=== PATIENT | male | born 1955 | race Two or more races ===

== ENCOUNTER 2021-02-14 04:48 | Inpatient (IN) | payer OTHER ==
[~2021-02-14] VITALS: Ht 165.1 cm; Wt 130.6 kg
[2021-02-14] MEDS ORDERED: HEPARIN 5000 UNITS/ML VIAL IV ONE (05:00)
[2021-02-14] MEDS ORDERED: DEXAMETHASONE 10 MG/ML VIAL IV ONE (05:00)
[2021-02-14] MEDS ORDERED: HEPARIN 25,000 UNITS PREMIX 250 ML IV ONE (05:00)
[2021-02-14 05:19] LABS: HEMATOCRIT. 30.4 % (42.0-52.0); HEMOGLOBIN. 9.8 g/dL (14.0-18.0); MEAN CORPUSCULAR HEMOGLOBIN 27.1 pg (28.0-32.0); MEAN CORPUSCULAR VOLUME 84.5 fL (80.0-94.0); MEAN PLATELET VOLUME 9.4 fl (7.4-10.4); PLATELET 245 x1000/uL (130-400); RED CELL DISTRIBUTION WIDTH 13.9 % (11.6-14.6)
[2021-02-14 05:25] LABS: CHLORIDE 101 mEq/L (98-107)
[2021-02-14 05:29] LABS: INR 1.1; PARTIAL THROMBOPLASTIN TIME 35.9 sec (23.4-31.0); PROTHROMBIN TIME 11.7 sec (9.6-11.0)
[2021-02-14] MEDS ORDERED: CALCIUM CHLORIDE 1GM/10ML SYR IV NR (05:45)
[2021-02-14] MEDS ORDERED: ALBUTEROL (0.083%) 2.5MG/3ML NEB HHN NR (05:45)
[2021-02-14] MEDS ORDERED: SODIUM BICARBONATE 8.4% 1 MEQ/ML 50ML SYR IV NR (05:45)
[2021-02-14] MEDS ORDERED: INSULIN REGULAR (HUMULIN R) 300UNITS/3ML VIAL IV NR (05:45)
[2021-02-14] MEDS ORDERED: DEXTROSE 50% WATER 50ML SYRINGE IV ONE (05:45)
[2021-02-14] MEDS ORDERED: HEPARIN 5000 UNITS/ML VIAL IV NR (05:45)
[2021-02-14 05:53] LABS: BG BASE EXCESS -11.1 mmol/L (-2.0-2.0); BG CARBOXYHEMOGLOBIN 0.3 % (0.5-1.5); BG DEOXYHEMOGLOBIN 18.6 % (0.0-5.0); BG FRACTION INSPIRED OXYGEN 100; BG HCO3 ACT 15.1 mmol/L (22.0-26.0); BG METHEMOGLOBIN 0.4 % (0.0-1.5); BG OXYGEN SATURATION 81.3 % (92.0-98.5); BG OXYHEMOGLOBIN 80.7 % (94.0-97.0); BG PCO2 35.2 mmHg (35.0-45.0); BG PH 7.251 (7.350-7.450); BG PO2 50.1 mmHg (75.0-100.0); BG SAMPLE SITE RIGHT RADIAL; BG TOTAL HEMOGLOBIN 10.3 g/dL (12.0-18.0); BG TOTAL RESPIRATORY RATE 36 b/min; BG VENT MODE MASK - BIPAP
[2021-02-14] MEDS ORDERED: HEPARIN 25,000 UNITS PREMIX 250 ML IV SCH (06:00)
[2021-02-14] MEDS ORDERED: FUROSEMIDE 100MG/10ML VIAL IV NR (06:00)
[2021-02-14 06:18] LABS: PLATELET ESTIMATE NORMAL
[2021-02-14] MEDS ORDERED: PIPERACILLIN/TAZ 3.375G PREMIX 50 ML IV ONE (07:00)
[2021-02-14] MEDS ORDERED: VANCOMYCIN 1 G PREMIX 200 ML IV ONE (07:00)
[2021-02-14] MEDS ORDERED: IOHEXOL-350 100 ML BOTTLE ONE (08:05)
[2021-02-14 08:29] LABS: COLOR URINE YELLOW (YELLOW); KETONES URINE NEGATIVE (NEGATIVE); LEUKOCYTE ESTERASE URINE NEGATIVE (NEGATIVE); NITRITE URINE NEGATIVE (NEGATIVE); OCCULT BLOOD URINE NEGATIVE (NEGATIVE); PROTEIN URINE NEGATIVE (NEGATIVE); SPECIFIC GRAVITY URINE 1.013 (1.005-1.030); UROBILINOGEN URINE 0.2 E.U./dL (0.2-1.0)
[2021-02-14 08:51] LABS: CLARITY URINE CLEAR (CLEAR)
[2021-02-14] MEDS ORDERED: DIPHENHYDRAMINE 50MG/ML VIAL IV PRN (09:15)
[2021-02-14] MEDS ORDERED: CLONIDINE 0.1MG TABLET PO PRN (09:15)
[2021-02-14] MEDS ORDERED: ACETAMINOPHEN 325MG TABLET PO PRN (09:15)
[2021-02-14] MEDS ORDERED: ONDANSETRON HCL 4MG/2ML INJ IV PRN (09:15)
[2021-02-14] MEDS ORDERED: CEFTRIAXONE 1 G PREMIX 50 ML IV SCH (10:00)
[2021-02-14] MEDS ORDERED: DEXTROSE 50% WATER 50ML SYRINGE IV PRN (11:00)
[2021-02-14] MEDS: HYDRALAZINE 20MG/ML VIAL IV PRN ×2 (11:07→17:24)
[2021-02-14 11:12] LABS: BG BASE EXCESS -9.2 mmol/L (-2.0-2.0); BG CARBOXYHEMOGLOBIN 0.2 % (0.5-1.5); BG DEOXYHEMOGLOBIN 1.3 % (0.0-5.0); BG HCO3 ACT 16.1 mmol/L (22.0-26.0); BG METHEMOGLOBIN 0.4 % (0.0-1.5); BG OXYGEN SATURATION 98.7 % (92.0-98.5); BG OXYHEMOGLOBIN 98.1 % (94.0-97.0); BG PCO2 32.5 mmHg (35.0-45.0); BG PH 7.312 (7.350-7.450); BG PO2 168.2 mmHg (75.0-100.0); BG SAMPLE SITE RIGHT BRACHIAL; BG TOTAL HEMOGLOBIN 10.2 g/dL (12.0-18.0); BG VENT MODE MASK - BIPAP
[2021-02-14] MEDS ORDERED: HEPARIN BOLUS PRN aPTT <30 IV (12:00)
[2021-02-14] MEDS ORDERED: HEPARIN BOLUS PRN aPTT 30-44 IV (12:00)
[2021-02-14] MEDS: BLOOD SUGAR DIAGNOSTIC STRIP TEST SCH ×3 (12:53→21:02)
[2021-02-14] MEDS: HYDROCORTISONE SOD SUCCINATE 100 MG/2 ML VIAL IV SCH ×2 (13:00→19:14)
[2021-02-14] MEDS: AZITHROMYCIN 500 MG in DEXT 5% WATER 250 ML IV SCH (13:00)
[2021-02-14] MEDS: INSULIN LISPRO 100 UNITS/ML SUBCUT SCH ×3 (13:02→21:07)
[2021-02-14] MEDS: CEFEPIME 1,000 MG in DEXTROSE 5% WATER 50 ML IV SCH (14:57)
[2021-02-14] MEDS: MYCOPHENOLATE MOFETIL 500MG TABLET PO SCH (21:02)
[2021-02-14] MEDS: HEPARIN 5000 UNITS/ML VIAL SUBCUT SCH (23:11)
[2021-02-15] VITALS (8 sets, daily range): BP systolic 136–169; BP diastolic 83–95
[2021-02-15] LABS: CHLORIDE 101 mEq/L (98-107)
[2021-02-15] MEDS: HYDROCORTISONE SOD SUCCINATE 100 MG/2 ML VIAL IV SCH ×4 (01:36→19:13)
[2021-02-15 05:08] LABS: HEMATOCRIT. 30.9 % (42.0-52.0); HEMOGLOBIN. 9.8 g/dL (14.0-18.0); MEAN CORPUSCULAR HEMOGLOBIN 26.6 pg (28.0-32.0); MEAN CORPUSCULAR VOLUME 84.2 fL (80.0-94.0); MEAN PLATELET VOLUME 9.6 fl (7.4-10.4); PLATELET 264 x1000/uL (130-400); RED BLOOD CELL COUNT 3.67 mill/uL (4.7-6.1); RED CELL DISTRIBUTION WIDTH 13.8 % (11.6-14.6)
[2021-02-15 05:17] LABS: CHLORIDE 101 mEq/L (98-107)
[2021-02-15 05:28] LABS: LDL CHOLESTEROL 31 mg/dL (5-100)
[2021-02-15 05:29] LABS: HDL CHOLESTEROL 41 mg/dL (40-59)
[2021-02-15] MEDS: BLOOD SUGAR DIAGNOSTIC STRIP TEST SCH ×4 (07:12→21:05)
[2021-02-15] MEDS ORDERED: LIDOCAINE HCL 1% 20ML VIAL (Pyxis) INJ ONE (07:18)
[2021-02-15] MEDS: INSULIN LISPRO 100 UNITS/ML SUBCUT SCH ×4 (08:17→21:22)
[2021-02-15 09:04] LABS: PLATELET ESTIMATE NORMAL
[2021-02-15] MEDS: MYCOPHENOLATE MOFETIL 500MG TABLET PO SCH ×2 (09:32→21:22)
[2021-02-15] MEDS: AZITHROMYCIN 500 MG in DEXT 5% WATER 250 ML IV SCH (09:33)
[2021-02-15] MEDS: HEPARIN 5000 UNITS/ML VIAL SUBCUT SCH ×2 (09:52→21:22)
[2021-02-15] MEDS ORDERED: HYDROMORPHONE HCL/PF 2MG/ML CPJ IV PRN (10:15)
[2021-02-15] MEDS: SODIUM CHLORIDE 0.9% 1,000 ML IV SCH ×2 (10:56→21:38)
[2021-02-15] MEDS ORDERED: SODIUM POLYSTYRENE SULFONATE 15 G/60 ML BOT PO SCH (11:00)
[2021-02-15] MEDS: CEFEPIME 1,000 MG in DEXTROSE 5% WATER 50 ML IV SCH (13:41)
[2021-02-15] MEDS: IVERMECTIN 3 MG TABLET PO SCH (19:40)
[2021-02-16] VITALS (42 sets, daily range): BP systolic 132–171; BP diastolic 65–109
[2021-02-16] MEDS: HYDROCORTISONE SOD SUCCINATE 100 MG/2 ML VIAL IV SCH ×4 (00:12→19:11)
[2021-02-16] MEDS ORDERED: MULT-1146 MT (01:21)
[2021-02-16] MEDS ORDERED: TACR4TAB MT (01:21)
[2021-02-16] MEDS ORDERED: ATOR20TA65 MT (01:21)
[2021-02-16] MEDS ORDERED: CARV12.545 MT (01:21)
[2021-02-16] MEDS ORDERED: AMLO10TA80 MT (01:37)
[2021-02-16] MEDS ORDERED: MYCO250C MT (01:37)
[2021-02-16] MEDS ORDERED: ENTE0.5T11 MT (01:37)
[2021-02-16] MEDS ORDERED: ASPI-1497 PO (01:37)
[2021-02-16] MEDS ORDERED: PRED-276 MT (01:37)
[2021-02-16] MEDS ORDERED: LISI10TA26 MT (01:37)
[2021-02-16] MEDS ORDERED: TAMS-11 PO (01:37)
[2021-02-16] MEDS ORDERED: HYDR-4135 MT (01:37)
[2021-02-16] MEDS ORDERED: *PATIENT'S OWN MEDICATION STORAGE XX SCH (02:45)
[2021-02-16] MEDS: BLOOD SUGAR DIAGNOSTIC STRIP TEST SCH ×4 (06:09→20:49)
[2021-02-16] MEDS: INSULIN LISPRO 100 UNITS/ML SUBCUT SCH ×4 (06:17→21:14)
[2021-02-16 07:36] LABS: HEMATOCRIT. 27.2 % (42.0-52.0); HEMOGLOBIN. 8.8 g/dL (14.0-18.0); MEAN CORPUSCULAR HEMOGLOBIN 26.7 pg (28.0-32.0); MEAN PLATELET VOLUME 10.1 fl (7.4-10.4); PLATELET 295 x1000/uL (130-400); RED BLOOD CELL COUNT 3.28 mill/uL (4.7-6.1)
[2021-02-16] MEDS ORDERED: PROPOFOL 10MG/ML 100ML 100 ML IV PRN (08:00)
[2021-02-16] MEDS ORDERED: NALOXONE HCL 0.4MG/ML VIAL IV PRN (08:00)
[2021-02-16] MEDS ORDERED: MIDAZOLAM HCL 100 MG in SODIUM CHLORIDE 0.9% 80 ML IV PRN (08:00)
[2021-02-16] MEDS ORDERED: FENTANYL CITRATE/PF 2,500 MCG in SODIUM CHLORIDE 0.9% 200 ML IV PRN (08:00)
[2021-02-16] MEDS: CITRIC ACID/SODIUM CITRATE SOLN 30ML UDC PO SCH ×3 (10:16→16:27)
[2021-02-16] MEDS: HYDRALAZINE 20MG/ML VIAL IV PRN (10:16)
[2021-02-16] MEDS: HEPARIN 5000 UNITS/ML VIAL SUBCUT SCH ×2 (10:17→21:12)
[2021-02-16] MEDS: AZITHROMYCIN 500 MG in DEXT 5% WATER 250 ML IV SCH (10:42)
[2021-02-16] MEDS: MYCOPHENOLATE MOFETIL 500MG TABLET PO SCH ×2 (10:42→21:12)
[2021-02-16] MEDS: SODIUM CHLORIDE 0.9% 1,000 ML IV SCH (10:44)
[2021-02-16] MEDS: CEFEPIME 1,000 MG in DEXTROSE 5% WATER 50 ML IV SCH (13:55)
[2021-02-16] MEDS ORDERED: ALPRAZOLAM 0.25 MG TABLET PO PRN (16:00)
[2021-02-16] MEDS: LORAZEPAM 2MG/ML CPJ IV PRN (16:28)
[2021-02-16] MEDS ORDERED: AMLODIPINE 10MG TABLET PO NR (16:30)
[2021-02-16 16:59] LABS: PLATELET ESTIMATE NORMAL
[2021-02-16] MEDS: IVERMECTIN 3 MG TABLET PO SCH (19:09)
[2021-02-16] MEDS: CARVEDILOL 12.5MG TABLET PO SCH (21:15)
[2021-02-17] VITALS (24 sets, daily range): BP systolic 131–171; BP diastolic 58–95
[2021-02-17] MEDS: HYDROCORTISONE SOD SUCCINATE 100 MG/2 ML VIAL IV SCH ×4 (00:52→18:49)
[2021-02-17] MEDS: SODIUM CHLORIDE 0.9% 1,000 ML IV SCH ×2 (03:00→17:49)
[2021-02-17] MEDS: LORAZEPAM 2MG/ML CPJ IV PRN (03:08)
[2021-02-17] MEDS: HYDRALAZINE 20MG/ML VIAL IV PRN (03:08)
[2021-02-17 05:17] LABS: HEMATOCRIT. 26.9 % (42.0-52.0); HEMOGLOBIN. 8.8 g/dL (14.0-18.0); MEAN CORPUSCULAR HEMOGLOBIN 26.8 pg (28.0-32.0); MEAN CORPUSCULAR VOLUME 82.4 fL (80.0-94.0); MEAN PLATELET VOLUME 9.8 fl (7.4-10.4); PLATELET 323 x1000/uL (130-400); RED BLOOD CELL COUNT 3.27 mill/uL (4.7-6.1); RED CELL DISTRIBUTION WIDTH 14.1 % (11.6-14.6)
[2021-02-17] MEDS: BLOOD SUGAR DIAGNOSTIC STRIP TEST SCH ×4 (06:02→21:00)
[2021-02-17] MEDS: INSULIN LISPRO 100 UNITS/ML SUBCUT SCH ×4 (06:02→22:32)
[2021-02-17] MEDS: CITRIC ACID/SODIUM CITRATE SOLN 30ML UDC PO SCH ×3 (08:19→17:49)
[2021-02-17] MEDS: AMLODIPINE 10MG TABLET PO SCH (08:21)
[2021-02-17] MEDS: CARVEDILOL 12.5MG TABLET PO SCH (08:22)
[2021-02-17] MEDS ORDERED: DEXAMETHASONE 4MG/ML 1ML VIAL IV SCH (09:00)
[2021-02-17] MEDS: MYCOPHENOLATE MOFETIL 500MG TABLET PO SCH ×2 (10:19→21:00)
[2021-02-17] MEDS: HEPARIN 5000 UNITS/ML VIAL SUBCUT SCH ×2 (10:29→22:33)
[2021-02-17] MEDS: AZITHROMYCIN 500 MG in DEXT 5% WATER 250 ML IV SCH (12:06)
[2021-02-17] MEDS: CEFEPIME 1,000 MG in DEXTROSE 5% WATER 50 ML IV SCH (13:42)
[2021-02-17] MEDS ORDERED: GUAIFENESIN-DM 200MG-20MG/10ML UDC PO PRN (13:45)
[2021-02-17] MEDS ORDERED: BENZONATATE 100MG CAPSULE PO PRN (13:45)
[2021-02-17] MEDS ORDERED: LORAZEPAM 2MG/ML CPJ IV PRN (13:45)
[2021-02-17 15:42] LABS: PLATELET ESTIMATE NORMAL
[2021-02-17] MEDS: IVERMECTIN 3 MG TABLET PO SCH (19:00)
[2021-02-17] MEDS: METOPROLOL TARTRATE 50MG TABLET PO SCH (21:00)
[2021-02-18] VITALS (34 sets, daily range): BP systolic 68–147; BP diastolic 24–71
[2021-02-18] MEDS: HYDROCORTISONE SOD SUCCINATE 100 MG/2 ML VIAL IV SCH ×4 (01:08→20:48)
[2021-02-18 07:33] LABS: HEMATOCRIT. 27.8 % (42.0-52.0); HEMOGLOBIN. 8.7 g/dL (14.0-18.0); MEAN CORPUSCULAR HEMOGLOBIN 26.5 pg (28.0-32.0); MEAN CORPUSCULAR VOLUME 84.3 fL (80.0-94.0); MEAN PLATELET VOLUME 10.3 fl (7.4-10.4); PLATELET 294 x1000/uL (130-400); RED BLOOD CELL COUNT 3.29 mill/uL (4.7-6.1); RED CELL DISTRIBUTION WIDTH 14.3 % (11.6-14.6)
[2021-02-18] MEDS: BLOOD SUGAR DIAGNOSTIC STRIP TEST SCH ×4 (07:34→20:52)
[2021-02-18] MEDS ORDERED: METOPROLOL TARTRATE 5MG/5ML VIAL IV PRN (08:15)
[2021-02-18] MEDS: CITRIC ACID/SODIUM CITRATE SOLN 30ML UDC PO SCH ×2 (09:42→13:00)
[2021-02-18] MEDS: AMLODIPINE 10MG TABLET PO SCH (09:42)
[2021-02-18] MEDS: METOPROLOL TARTRATE 50MG TABLET PO SCH ×2 (09:42→20:41)
[2021-02-18] MEDS: MYCOPHENOLATE MOFETIL 500MG TABLET PO SCH ×2 (09:42→20:42)
[2021-02-18] MEDS ORDERED: VECURONIUM BROMIDE 10 MG/VIAL IV ONE (10:01)
[2021-02-18] MEDS ORDERED: SODIUM CHLORIDE 0.9% 10ML VIAL ONE (10:01)
[2021-02-18] MEDS: INSULIN LISPRO 100 UNITS/ML SUBCUT SCH ×4 (10:15→20:51)
[2021-02-18] MEDS ORDERED: METOPROLOL TARTRATE 5MG/5ML VIAL IV NR (11:00)
[2021-02-18] MEDS: HEPARIN 5000 UNITS/ML VIAL SUBCUT SCH ×2 (11:05→21:07)
[2021-02-18] MEDS: AZITHROMYCIN 500 MG in DEXT 5% WATER 250 ML IV SCH (12:18)
[2021-02-18] MEDS: FENTANYL CITRATE/PF 2,500 MCG in SODIUM CHLORIDE 0.9% 200 ML IV PRN ×5 (14:01→16:21)
[2021-02-18 14:15] LABS: BG BASE EXCESS -11.1 mmol/L (-2.0-2.0); BG CARBOXYHEMOGLOBIN 0.3 % (0.5-1.5); BG DEOXYHEMOGLOBIN 1.3 % (0.0-5.0); BG FRACTION INSPIRED OXYGEN 100; BG HCO3 ACT 15.7 mmol/L (22.0-26.0); BG METHEMOGLOBIN 0.1 % (0.0-1.5); BG OXYGEN SATURATION 98.7 % (92.0-98.5); BG OXYHEMOGLOBIN 98.3 % (94.0-97.0); BG PCO2 38.7 mmHg (35.0-45.0); BG PH 7.226 (7.350-7.450); BG PO2 219.7 mmHg (75.0-100.0); BG SAMPLE SITE RIGHT RADIAL; BG TOTAL HEMOGLOBIN 9.9 g/dL (12.0-18.0); BG VENT MODE VENT - AC
[2021-02-18 14:16] LABS: PLATELET ESTIMATE NORMAL
[2021-02-18] MEDS ORDERED: SODIUM BICARBONATE 8.4% 1 MEQ/ML 50ML SYR IV NR ×2 (14:30)
[2021-02-18] MEDS: CEFEPIME 1,000 MG in DEXTROSE 5% WATER 50 ML IV SCH (14:39)
[2021-02-18] MEDS: SODIUM CHLORIDE 0.9% 1,000 ML IV SCH (14:40)
[2021-02-18] MEDS ORDERED: LIDOCAINE HCL 1% 20ML VIAL (Pyxis) INJ ONE (14:52)
[2021-02-18] MEDS: MIDAZOLAM HCL 100 MG in SODIUM CHLORIDE 0.9% 80 ML IV PRN ×2 (15:24→16:22)
[2021-02-18] MEDS: PROPOFOL 10MG/ML 100ML 100 ML IV PRN (16:20)
[2021-02-18] MEDS: PHENYLEPHRINE 100 MG in DEXT 5% WATER 240 ML IV PRN (16:54)
[2021-02-18] MEDS: IVERMECTIN 3 MG TABLET PO SCH (20:49)
[2021-02-19] VITALS (95 sets, daily range): BP systolic 77–196; BP diastolic 34–110
[2021-02-19] MEDS: MIDAZOLAM HCL 100 MG in SODIUM CHLORIDE 0.9% 80 ML IV PRN ×2 (01:34→14:47)
[2021-02-19] MEDS ORDERED: VECURONIUM BROMIDE 10 MG/VIAL IV SCH (02:00)
[2021-02-19] MEDS: FENTANYL CITRATE/PF 2,500 MCG in SODIUM CHLORIDE 0.9% 200 ML IV PRN ×3 (02:11→17:46)
[2021-02-19 05:08] LABS: HEMATOCRIT. 29.4 % (42.0-52.0); HEMOGLOBIN. 9.3 g/dL (14.0-18.0); MEAN CORPUSCULAR HEMOGLOBIN 26.3 pg (28.0-32.0); MEAN CORPUSCULAR VOLUME 83.2 fL (80.0-94.0); MEAN PLATELET VOLUME 10.3 fl (7.4-10.4); PLATELET 358 x1000/uL (130-400); RED BLOOD CELL COUNT 3.53 mill/uL (4.7-6.1); RED CELL DISTRIBUTION WIDTH 14.5 % (11.6-14.6)
[2021-02-19] MEDS: NOREPINEPHRINE 32 MG in DEXT 5% WATER 218 ML IV PRN (05:40)
[2021-02-19] MEDS: PHENYLEPHRINE 100 MG in DEXT 5% WATER 240 ML IV PRN ×3 (05:41→22:56)
[2021-02-19] MEDS: INSULIN LISPRO 100 UNITS/ML SUBCUT SCH ×4 (06:06→21:13)
[2021-02-19] MEDS: METHYLPREDNISOLONE SOD SUCC 40 MG/ML VIAL IV SCH (06:06)
[2021-02-19] MEDS: BLOOD SUGAR DIAGNOSTIC STRIP TEST SCH ×4 (06:07→21:15)
[2021-02-19 06:45] LABS: PLATELET ESTIMATE NORMAL
[2021-02-19] MEDS: METOPROLOL TARTRATE 50MG TABLET PO SCH (09:00)
[2021-02-19] MEDS: AMLODIPINE 10MG TABLET PO SCH (09:00)
[2021-02-19] MEDS ORDERED: PROPOFOL 10MG/ML 100ML 100 ML IV PRN (09:30)
[2021-02-19] MEDS: PROPOFOL 10MG/ML 100ML 100 ML IV PRN (09:30)
[2021-02-19] MEDS: HEPARIN 5000 UNITS/ML VIAL SUBCUT SCH ×2 (09:32→21:12)
[2021-02-19] MEDS: CITRIC ACID/SODIUM CITRATE SOLN 30ML UDC PO SCH ×3 (09:32→16:23)
[2021-02-19] MEDS: SODIUM CHLORIDE 0.9% 1,000 ML IV SCH (09:33)
[2021-02-19 10:02] LABS: BG BASE EXCESS -11.1 mmol/L (-2.0-2.0); BG CARBOXYHEMOGLOBIN 0.2 % (0.5-1.5); BG DEOXYHEMOGLOBIN 8.7 % (0.0-5.0); BG FRACTION INSPIRED OXYGEN 100; BG HCO3 ACT 17.7 mmol/L (22.0-26.0); BG METHEMOGLOBIN 0.3 % (0.0-1.5); BG OXYGEN SATURATION 91.3 % (92.0-98.5); BG OXYHEMOGLOBIN 90.8 % (94.0-97.0); BG PCO2 52.6 mmHg (35.0-45.0); BG PH 7.144 (7.350-7.450); BG PO2 69.7 mmHg (75.0-100.0); BG SAMPLE SITE LEFT RADIAL; BG TOTAL HEMOGLOBIN 10.8 g/dL (12.0-18.0); BG VENT MODE VENT - PRVC
[2021-02-19] MEDS ORDERED: SODIUM BICARBONATE 8.4% 1 MEQ/ML 50ML SYR IV NR (10:15)
[2021-02-19] MEDS: MIDODRINE HCL 5MG TABLET PO SCH ×2 (13:10→16:24)
[2021-02-19] MEDS: CEFEPIME 1,000 MG in DEXTROSE 5% WATER 50 ML IV SCH (14:30)
[2021-02-19] MEDS: IVERMECTIN 3 MG TABLET PO SCH (21:13)
[2021-02-19] MEDS: FAMOTIDINE 20MG/2ML VIAL IV SCH (21:15)
[2021-02-19 21:28] LABS: BG BASE EXCESS -6.7 mmol/L (-2.0-2.0); BG CARBOXYHEMOGLOBIN 0.3 % (0.5-1.5); BG DEOXYHEMOGLOBIN 0.5 % (0.0-5.0); BG FRACTION INSPIRED OXYGEN 100; BG HCO3 ACT 19.9 mmol/L (22.0-26.0); BG METHEMOGLOBIN 0.4 % (0.0-1.5); BG OXYGEN SATURATION 99.5 % (92.0-98.5); BG OXYHEMOGLOBIN 98.8 % (94.0-97.0); BG PCO2 44.4 mmHg (35.0-45.0); BG PO2 387.2 mmHg (75.0-100.0); BG SAMPLE SITE RIGHT RADIAL; BG TOTAL HEMOGLOBIN 11.1 g/dL (12.0-18.0); BG VENT MODE PRVC
[2021-02-20] VITALS (96 sets, daily range): BP systolic 63–151; BP diastolic 42–94
[2021-02-20] MEDS: FENTANYL CITRATE/PF 2,500 MCG in SODIUM CHLORIDE 0.9% 200 ML IV PRN ×4 (00:38→23:16)
[2021-02-20] MEDS: MIDAZOLAM HCL 100 MG in SODIUM CHLORIDE 0.9% 80 ML IV PRN ×3 (00:39→20:13)
[2021-02-20 05:43] LABS: HEMATOCRIT. 31.4 % (42.0-52.0); MEAN CORPUSCULAR HEMOGLOBIN 26.2 pg (28.0-32.0); MEAN CORPUSCULAR VOLUME 82.4 fL (80.0-94.0); PLATELET 342 x1000/uL (130-400); RED BLOOD CELL COUNT 3.81 mill/uL (4.7-6.1); RED CELL DISTRIBUTION WIDTH 14.2 % (11.6-14.6)
[2021-02-20] MEDS: INSULIN LISPRO 100 UNITS/ML SUBCUT SCH ×4 (06:57→20:18)
[2021-02-20] MEDS: METHYLPREDNISOLONE SOD SUCC 40 MG/ML VIAL IV SCH ×2 (06:59→17:07)
[2021-02-20] MEDS: SODIUM CHLORIDE 0.9% 1,000 ML IV SCH (06:59)
[2021-02-20] MEDS: BLOOD SUGAR DIAGNOSTIC STRIP TEST SCH ×4 (06:59→20:17)
[2021-02-20] MEDS: CITRIC ACID/SODIUM CITRATE SOLN 30ML UDC PO SCH ×2 (08:02→13:17)
[2021-02-20] MEDS: MIDODRINE HCL 5MG TABLET PO SCH ×3 (08:02→16:57)
[2021-02-20 08:26] LABS: BG BASE EXCESS -9.5 mmol/L (-2.0-2.0); BG CARBOXYHEMOGLOBIN 0.3 % (0.5-1.5); BG DEOXYHEMOGLOBIN 0.6 % (0.0-5.0); BG HCO3 ACT 17.3 mmol/L (22.0-26.0); BG METHEMOGLOBIN 0.3 % (0.0-1.5); BG OXYGEN SATURATION 99.4 % (92.0-98.5); BG OXYHEMOGLOBIN 98.8 % (94.0-97.0); BG PCO2 41.6 mmHg (35.0-45.0); BG PH 7.238 (7.350-7.450); BG PO2 232.1 mmHg (75.0-100.0); BG SAMPLE SITE RIGHT RADIAL; BG TOTAL HEMOGLOBIN 11.2 g/dL (12.0-18.0); BG VENT MODE VENT- PRVC
[2021-02-20] MEDS ORDERED: SODIUM BICARBONATE 8.4% 1 MEQ/ML 50ML SYR IV NR (09:00)
[2021-02-20] MEDS: HEPARIN 5000 UNITS/ML VIAL SUBCUT SCH ×2 (09:12→21:00)
[2021-02-20] MEDS: PHENYLEPHRINE 100 MG in DEXT 5% WATER 240 ML IV PRN ×2 (10:16→20:02)
[2021-02-20 12:58] LABS: PLATELET ESTIMATE NORMAL
[2021-02-20] MEDS: CEFEPIME 1,000 MG in DEXTROSE 5% WATER 50 ML IV SCH (13:19)
[2021-02-20] MEDS: INSULIN GLARGINE UD 100 UNITS/ML SYR SUBCUT SCH (14:00)
[2021-02-20] MEDS: FAMOTIDINE 20MG/2ML VIAL IV SCH (20:17)
[2021-02-21] VITALS (92 sets, daily range): BP systolic 81–169; BP diastolic 37–108
[2021-02-21] MEDS ORDERED: TACROLIMUS 1MG CAPSULE PO SCH
[2021-02-21] MEDS: METHYLPREDNISOLONE SOD SUCC 40 MG/ML VIAL IV SCH ×3 (01:33→18:17)
[2021-02-21] MEDS: TACROLIMUS 1 MG/ML NG SCH ×3 (01:33→17:52)
[2021-02-21] MEDS: PHENYLEPHRINE 100 MG in DEXT 5% WATER 240 ML IV PRN ×3 (05:01→22:10)
[2021-02-21 05:11] LABS: HEMATOCRIT. 32.6 % (42.0-52.0); HEMOGLOBIN. 10.3 g/dL (14.0-18.0); MEAN CORPUSCULAR HEMOGLOBIN 26.1 pg (28.0-32.0); MEAN CORPUSCULAR VOLUME 82.9 fL (80.0-94.0); MEAN PLATELET VOLUME 10.3 fl (7.4-10.4); PLATELET 351 x1000/uL (130-400); RED BLOOD CELL COUNT 3.93 mill/uL (4.7-6.1)
[2021-02-21] MEDS: BLOOD SUGAR DIAGNOSTIC STRIP TEST SCH ×4 (06:14→20:46)
[2021-02-21] MEDS: INSULIN LISPRO 100 UNITS/ML SUBCUT SCH ×4 (06:15→21:52)
[2021-02-21] MEDS: FENTANYL CITRATE/PF 2,500 MCG in SODIUM CHLORIDE 0.9% 200 ML IV PRN ×3 (07:22→22:04)
[2021-02-21] MEDS: MIDODRINE HCL 5MG TABLET PO SCH ×3 (08:54→17:51)
[2021-02-21] MEDS: HEPARIN 5000 UNITS/ML VIAL SUBCUT SCH ×2 (10:00→21:51)
[2021-02-21 10:16] LABS: BG BASE EXCESS -10.7 mmol/L (-2.0-2.0); BG CARBOXYHEMOGLOBIN 0.3 % (0.5-1.5); BG DEOXYHEMOGLOBIN 1.4 % (0.0-5.0); BG FRACTION INSPIRED OXYGEN 100; BG HCO3 ACT 17.2 mmol/L (22.0-26.0); BG METHEMOGLOBIN 0.3 % (0.0-1.5); BG OXYGEN SATURATION 98.6 % (92.0-98.5); BG PCO2 46.9 mmHg (35.0-45.0); BG PH 7.183 (7.350-7.450); BG PO2 149.4 mmHg (75.0-100.0); BG SAMPLE SITE RIGHT RADIAL; BG TOTAL HEMOGLOBIN 11.3 g/dL (12.0-18.0); BG VENT MODE VENT - PRVC
[2021-02-21] MEDS ORDERED: SODIUM BICARBONATE 8.4% 1 MEQ/ML 50ML SYR IV SCH (10:30)
[2021-02-21] MEDS: INSULIN GLARGINE UD 100 UNITS/ML SYR SUBCUT SCH (10:39)
[2021-02-21] MEDS: MIDAZOLAM HCL 100 MG in SODIUM CHLORIDE 0.9% 80 ML IV PRN ×2 (11:26→18:18)
[2021-02-21 14:31] LABS: NUCLEATED RED BLOOD CELLS 2 /100 WBC; PLATELET ESTIMATE NORMAL
[2021-02-21] MEDS: CEFEPIME 1,000 MG in DEXTROSE 5% WATER 50 ML IV SCH (14:53)
[2021-02-21] MEDS ORDERED: FUROSEMIDE 40MG/4ML VIAL IVP SCH (15:15)
[2021-02-21 15:45] LABS: BG BASE EXCESS -7.4 mmol/L (-2.0-2.0); BG DEOXYHEMOGLOBIN 6.7 % (0.0-5.0); BG FRACTION INSPIRED OXYGEN 60; BG METHEMOGLOBIN 0.3 % (0.0-1.5); BG OXYGEN SATURATION 93.3 % (92.0-98.5); BG PCO2 42.3 mmHg (35.0-45.0); BG PH 7.271 (7.350-7.450); BG PO2 73.7 mmHg (75.0-100.0); BG SAMPLE SITE RIGHT RADIAL; BG TOTAL HEMOGLOBIN 11.1 g/dL (12.0-18.0); BG VENT MODE VENT - PRVC
[2021-02-21] MEDS: FAMOTIDINE 20MG/2ML VIAL IV SCH (21:17)
[2021-02-22] VITALS (117 sets, daily range): BP systolic 53–167; BP diastolic 24–127
[2021-02-22] MEDS: METHYLPREDNISOLONE SOD SUCC 40 MG/ML VIAL IV SCH ×3 (02:13→17:01)
[2021-02-22] MEDS: MIDAZOLAM HCL 100 MG in SODIUM CHLORIDE 0.9% 80 ML IV PRN (02:24)
[2021-02-22 05:04] LABS: HEMATOCRIT. 32.6 % (42.0-52.0); HEMOGLOBIN. 9.9 g/dL (14.0-18.0); MEAN CORPUSCULAR HEMOGLOBIN 26.1 pg (28.0-32.0); MEAN CORPUSCULAR VOLUME 85.5 fL (80.0-94.0); MEAN PLATELET VOLUME 10.9 fl (7.4-10.4); PLATELET 308 x1000/uL (130-400); RED BLOOD CELL COUNT 3.81 mill/uL (4.7-6.1); RED CELL DISTRIBUTION WIDTH 15.1 % (11.6-14.6)
[2021-02-22] MEDS: FENTANYL CITRATE/PF 2,500 MCG in SODIUM CHLORIDE 0.9% 200 ML IV PRN ×2 (05:11→18:26)
[2021-02-22] MEDS: BLOOD SUGAR DIAGNOSTIC STRIP TEST SCH ×4 (06:35→21:00)
[2021-02-22] MEDS: INSULIN LISPRO 100 UNITS/ML SUBCUT SCH ×4 (06:44→21:00)
[2021-02-22] MEDS ORDERED: LIDOCAINE HCL 1% 20ML VIAL (Pyxis) INJ ONE (08:11)
[2021-02-22] MEDS ORDERED: ATROPINE SULFATE 1MG/10ML SYR ONE (09:09)
[2021-02-22] MEDS ORDERED: EPINEPHRINE 0.1MG/ML (1:10,000) 10ML SYR ONE (09:09)
[2021-02-22] MEDS ORDERED: SODIUM BICARBONATE 8.4% 1 MEQ/ML 50ML SYR IV ONE ×3 (09:24→13:00)
[2021-02-22 10:24] LABS: BG CARBOXYHEMOGLOBIN 0.3 % (0.5-1.5); BG FRACTION INSPIRED OXYGEN 100; BG HCO3 ACT 17.5 mmol/L (22.0-26.0); BG METHEMOGLOBIN 0.2 % (0.0-1.5); BG OXYHEMOGLOBIN 98.5 % (94.0-97.0); BG PCO2 44.9 mmHg (35.0-45.0); BG PH 7.209 (7.350-7.450); BG PO2 191.6 mmHg (75.0-100.0); BG SAMPLE SITE RIGHT RADIAL; BG TOTAL HEMOGLOBIN 11.3 g/dL (12.0-18.0); BG VENT MODE VENT - PRVC
[2021-02-22] MEDS: TACROLIMUS 1 MG/ML NG SCH ×2 (10:46→17:10)
[2021-02-22] MEDS: MIDODRINE HCL 5MG TABLET PO SCH ×3 (10:46→17:00)
[2021-02-22] MEDS: HEPARIN 5000 UNITS/ML VIAL SUBCUT SCH ×2 (10:47→22:00)
[2021-02-22] MEDS: INSULIN GLARGINE UD 100 UNITS/ML SYR SUBCUT SCH ×2 (10:48→22:42)
[2021-02-22] MEDS: PHENYLEPHRINE 100 MG in DEXT 5% WATER 240 ML IV PRN ×3 (12:14→23:55)
[2021-02-22] MEDS: VASOPRESSIN 20 UNIT in SODIUM CHLORIDE 0.9% 99 ML IV PRN ×2 (12:34→18:01)
[2021-02-22 12:51] LABS: BG BASE EXCESS -8.3 mmol/L (-2.0-2.0); BG CARBOXYHEMOGLOBIN 0.2 % (0.5-1.5); BG DEOXYHEMOGLOBIN 36.5 % (0.0-5.0); BG FRACTION INSPIRED OXYGEN 100; BG HCO3 ACT 19.5 mmol/L (22.0-26.0); BG METHEMOGLOBIN 0.3 % (0.0-1.5); BG OXYGEN SATURATION 63.3 % (92.0-98.5); BG PCO2 49.6 mmHg (35.0-45.0); BG PH 7.212 (7.350-7.450); BG PO2 37.8 mmHg (75.0-100.0); BG SAMPLE SITE RIGHT RADIAL; BG TOTAL HEMOGLOBIN 11.3 g/dL (12.0-18.0); BG VENT MODE VENT - PRVC
[2021-02-22] MEDS: NOREPINEPHRINE 32 MG in DEXT 5% WATER 218 ML IV PRN (13:00)
[2021-02-22 14:01] LABS: HEPATITIS B SURFACE ANTIGEN NEGATIVE
[2021-02-22] MEDS: CEFEPIME 1,000 MG in DEXTROSE 5% WATER 50 ML IV SCH (15:13)
[2021-02-22] MEDS ORDERED: MEROPENEM 1,000 MG in SODIUM CHLORIDE 0.9% 100 ML IV SCH (17:00)
[2021-02-22 17:03] LABS: BG BASE EXCESS -9.7 mmol/L (-2.0-2.0); BG CARBOXYHEMOGLOBIN 0.1 % (0.5-1.5); BG DEOXYHEMOGLOBIN 19.7 % (0.0-5.0); BG FRACTION INSPIRED OXYGEN 100; BG HCO3 ACT 17.7 mmol/L (22.0-26.0); BG METHEMOGLOBIN 0.2 % (0.0-1.5); BG OXYGEN SATURATION 80.2 % (92.0-98.5); BG PH 7.213 (7.350-7.450); BG PO2 50.7 mmHg (75.0-100.0); BG SAMPLE SITE RIGHT RADIAL; BG TOTAL HEMOGLOBIN 11.2 g/dL (12.0-18.0); BG VENT MODE VENT - PRVC
[2021-02-22] MEDS ORDERED: SODIUM BICARBONATE 8.4% 1 MEQ/ML 50ML SYR IV NR ×2 (17:15)
[2021-02-22] MEDS: MEROPENEM 500MG in NORMAL SALINE 50ML IV SCH (19:36)
[2021-02-22] MEDS: FAMOTIDINE 20MG/2ML VIAL IV SCH ×2 (21:00→22:19)
[2021-02-22 21:25] LABS: BG BASE EXCESS -5.9 mmol/L (-2.0-2.0); BG CARBOXYHEMOGLOBIN 0.3 % (0.5-1.5); BG FRACTION INSPIRED OXYGEN 100; BG HCO3 ACT 20.9 mmol/L (22.0-26.0); BG METHEMOGLOBIN 0.3 % (0.0-1.5); BG OXYGEN SATURATION 82.9 % (92.0-98.5); BG OXYHEMOGLOBIN 82.4 % (94.0-97.0); BG PCO2 46.2 mmHg (35.0-45.0); BG PH 7.273 (7.350-7.450); BG PO2 53.8 mmHg (75.0-100.0); BG SAMPLE SITE LEFT BRACHIAL; BG TOTAL HEMOGLOBIN 11.7 g/dL (12.0-18.0); BG VENT MODE PRVC
[2021-02-22] MEDS ORDERED: SODIUM BICARBONATE 8.4% 1 MEQ/ML 50ML SYR IV SCH (21:45)
[2021-02-22 23:26] LABS: PLATELET ESTIMATE NORMAL
[2021-02-23] VITALS (97 sets, daily range): BP systolic 62–162; BP diastolic 44–124
[2021-02-23] MEDS: METHYLPREDNISOLONE SOD SUCC 40 MG/ML VIAL IV SCH ×3 (02:09→17:20)
[2021-02-23 05:13] LABS: HEMATOCRIT. 31.4 % (42.0-52.0); HEMOGLOBIN. 9.9 g/dL (14.0-18.0); MEAN CORPUSCULAR HEMOGLOBIN 26.4 pg (28.0-32.0); MEAN CORPUSCULAR VOLUME 83.7 fL (80.0-94.0); MEAN PLATELET VOLUME 10.5 fl (7.4-10.4); PLATELET 269 x1000/uL (130-400); RED BLOOD CELL COUNT 3.76 mill/uL (4.7-6.1); RED CELL DISTRIBUTION WIDTH 15.1 % (11.6-14.6)
[2021-02-23] MEDS: BLOOD SUGAR DIAGNOSTIC STRIP TEST SCH ×4 (06:08→20:21)
[2021-02-23] MEDS: INSULIN LISPRO 100 UNITS/ML SUBCUT SCH ×4 (07:13→21:27)
[2021-02-23 08:52] LABS: BG BASE EXCESS -2.3 mmol/L (-2.0-2.0); BG CARBOXYHEMOGLOBIN 0.3 % (0.5-1.5); BG DEOXYHEMOGLOBIN 1.2 % (0.0-5.0); BG FRACTION INSPIRED OXYGEN 100; BG HCO3 ACT 22.5 mmol/L (22.0-26.0); BG METHEMOGLOBIN 0.3 % (0.0-1.5); BG OXYGEN SATURATION 98.8 % (92.0-98.5); BG OXYHEMOGLOBIN 98.2 % (94.0-97.0); BG PCO2 38.9 mmHg (35.0-45.0); BG PH 7.381 (7.350-7.450); BG PO2 182.8 mmHg (75.0-100.0); BG SAMPLE SITE RIGHT RADIAL; BG TOTAL HEMOGLOBIN 9.6 g/dL (12.0-18.0); BG VENT MODE VENT - PRVC
[2021-02-23] MEDS: MIDODRINE HCL 5MG TABLET PO SCH ×3 (09:08→17:20)
[2021-02-23] MEDS: INSULIN GLARGINE UD 100 UNITS/ML SYR SUBCUT SCH ×2 (09:09→21:28)
[2021-02-23] MEDS: TACROLIMUS 1 MG/ML NG SCH ×2 (09:09→17:20)
[2021-02-23] MEDS: HEPARIN 5000 UNITS/ML VIAL SUBCUT SCH ×2 (09:10→21:40)
[2021-02-23 10:22] LABS: NUCLEATED RED BLOOD CELLS 4 /100 WBC
[2021-02-23 10:23] LABS: PLATELET ESTIMATE NORMAL
[2021-02-23] MEDS: PHENYLEPHRINE 100 MG in DEXT 5% WATER 240 ML IV PRN (11:15)
[2021-02-23] MEDS: MEROPENEM 500MG in NORMAL SALINE 50ML IV SCH (18:30)
[2021-02-23] MEDS: FAMOTIDINE 20MG/2ML VIAL IV SCH (21:26)
[2021-02-24] VITALS (97 sets, daily range): BP systolic 74–165; BP diastolic 36–111
[2021-02-24] MEDS: METHYLPREDNISOLONE SOD SUCC 40 MG/ML VIAL IV SCH ×3 (02:49→18:22)
[2021-02-24 05:49] LABS: HEMATOCRIT. 28.2 % (42.0-52.0); MEAN CORPUSCULAR HEMOGLOBIN 26.3 pg (28.0-32.0); MEAN CORPUSCULAR VOLUME 82.4 fL (80.0-94.0); MEAN PLATELET VOLUME 9.5 fl (7.4-10.4); PLATELET 177 x1000/uL (130-400); RED BLOOD CELL COUNT 3.42 mill/uL (4.7-6.1); RED CELL DISTRIBUTION WIDTH 15.1 % (11.6-14.6)
[2021-02-24] MEDS: BLOOD SUGAR DIAGNOSTIC STRIP TEST SCH ×4 (06:29→21:14)
[2021-02-24] MEDS: INSULIN LISPRO 100 UNITS/ML SUBCUT SCH ×4 (06:29→21:22)
[2021-02-24] MEDS: FENTANYL CITRATE/PF 2,500 MCG in SODIUM CHLORIDE 0.9% 200 ML IV PRN ×2 (07:24→22:56)
[2021-02-24 07:41] LABS: BG BASE EXCESS -3.4 mmol/L (-2.0-2.0); BG CARBOXYHEMOGLOBIN 0.3 % (0.5-1.5); BG DEOXYHEMOGLOBIN 0.9 % (0.0-5.0); BG HCO3 ACT 21.5 mmol/L (22.0-26.0); BG METHEMOGLOBIN 0.3 % (0.0-1.5); BG OXYGEN SATURATION 99.1 % (92.0-98.5); BG OXYHEMOGLOBIN 98.5 % (94.0-97.0); BG PH 7.371 (7.350-7.450); BG PO2 203.4 mmHg (75.0-100.0); BG SAMPLE SITE RIGHT RADIAL; BG TOTAL HEMOGLOBIN 9.9 g/dL (12.0-18.0); BG VENT MODE VENT- PRVC
[2021-02-24] MEDS: TACROLIMUS 1 MG/ML NG SCH (09:48)
[2021-02-24] MEDS: HEPARIN 5000 UNITS/ML VIAL SUBCUT SCH ×2 (09:49→22:00)
[2021-02-24] MEDS: INSULIN GLARGINE UD 100 UNITS/ML SYR SUBCUT SCH ×2 (09:49→21:22)
[2021-02-24] MEDS: MIDODRINE HCL 5MG TABLET PO SCH ×3 (09:49→16:49)
[2021-02-24 13:07] LABS: QFT MITOGEN VALUE 0.08 IU/mL (.); QFT TB GOLD PLUS Indeterminate (Negative); QFT TB1 AG VALUE 0.08 IU/mL (.)
[2021-02-24 13:17] LABS: NUCLEATED RED BLOOD CELLS 1 /100 WBC
[2021-02-24 13:18] LABS: PLATELET ESTIMATE NORMAL
[2021-02-24] MEDS: TACROLIMUS 1MG/PACKET NG SCH (16:50)
[2021-02-24] MEDS: MEROPENEM 500MG in NORMAL SALINE 50ML IV SCH (18:22)
[2021-02-24] MEDS: MIDAZOLAM HCL 100 MG in SODIUM CHLORIDE 0.9% 80 ML IV PRN (21:54)
[2021-02-25] VITALS (131 sets, daily range): BP systolic 59–185; BP diastolic 32–148
[2021-02-25] MEDS: METHYLPREDNISOLONE SOD SUCC 40 MG/ML VIAL IV SCH ×3 (02:48→17:29)
[2021-02-25] MEDS: VASOPRESSIN 20 UNIT in SODIUM CHLORIDE 0.9% 99 ML IV PRN (03:50)
[2021-02-25] MEDS: BLOOD SUGAR DIAGNOSTIC STRIP TEST SCH ×4 (06:37→20:51)
[2021-02-25] MEDS: INSULIN LISPRO 100 UNITS/ML SUBCUT SCH ×4 (06:37→20:51)
[2021-02-25] MEDS: MIDAZOLAM HCL 100 MG in SODIUM CHLORIDE 0.9% 80 ML IV PRN ×2 (07:50→18:27)
[2021-02-25] MEDS: FENTANYL CITRATE/PF 2,500 MCG in SODIUM CHLORIDE 0.9% 200 ML IV PRN ×2 (08:28→17:31)
[2021-02-25] MEDS: MIDODRINE HCL 5MG TABLET PO SCH ×3 (09:08→17:30)
[2021-02-25] MEDS: TACROLIMUS 1MG/PACKET NG SCH ×2 (09:08→17:30)
[2021-02-25] MEDS: INSULIN GLARGINE UD 100 UNITS/ML SYR SUBCUT SCH ×2 (09:14→21:47)
[2021-02-25] MEDS ORDERED: AMIODARONE HCL 50MG/ML 3ML VIAL IV PRN (09:15)
[2021-02-25 09:35] LABS: BG BASE EXCESS -2.2 mmol/L (-2.0-2.0); BG CARBOXYHEMOGLOBIN 0.3 % (0.5-1.5); BG DEOXYHEMOGLOBIN 0.7 % (0.0-5.0); BG FRACTION INSPIRED OXYGEN 90; BG HCO3 ACT 22.8 mmol/L (22.0-26.0); BG METHEMOGLOBIN 0.3 % (0.0-1.5); BG OXYGEN SATURATION 99.3 % (92.0-98.5); BG OXYHEMOGLOBIN 98.7 % (94.0-97.0); BG PCO2 39.9 mmHg (35.0-45.0); BG PH 7.375 (7.350-7.450); BG PO2 237.3 mmHg (75.0-100.0); BG SAMPLE SITE RIGHT RADIAL; BG TOTAL RESPIRATORY RATE 40 b/min; BG VENT MODE VENT- PRVC
[2021-02-25 09:42] LABS: HEMATOCRIT. 30.8 % (42.0-52.0); HEMOGLOBIN. 9.2 g/dL (14.0-18.0); MEAN CORPUSCULAR HEMOGLOBIN 25.5 pg (28.0-32.0); MEAN CORPUSCULAR VOLUME 85.1 fL (80.0-94.0); MEAN PLATELET VOLUME 9.6 fl (7.4-10.4); PLATELET 200 x1000/uL (130-400); RED BLOOD CELL COUNT 3.62 mill/uL (4.7-6.1); RED CELL DISTRIBUTION WIDTH 15.2 % (11.6-14.6)
[2021-02-25] MEDS ORDERED: AMIODARONE HCL 150 MG in DEXT 5% WATER 100 ML IV PRN (10:00)
[2021-02-25 10:36] LABS: PLATELET ESTIMATE NORMAL
[2021-02-25] MEDS: HEPARIN 5000 UNITS/ML VIAL SUBCUT SCH ×2 (11:30→21:46)
[2021-02-25] MEDS: PHENYLEPHRINE 100 MG in DEXT 5% WATER 240 ML IV PRN (12:14)
[2021-02-25] MEDS: MEROPENEM 500MG in NORMAL SALINE 50ML IV SCH (18:27)
[2021-02-25] MEDS: FAMOTIDINE 20MG/2ML VIAL IV SCH (20:53)
[2021-02-25] MEDS ORDERED: VANCOMYCIN 2,000 MG in DEXT 5% WATER 500 ML IV NR (22:00)
[2021-02-26] VITALS (97 sets, daily range): BP systolic 87–148; BP diastolic 46–84
[2021-02-26] MEDS: BLOOD SUGAR DIAGNOSTIC STRIP TEST SCH ×4 (00:31→17:14)
[2021-02-26] MEDS: INSULIN LISPRO 100 UNITS/ML SUBCUT SCH ×4 (00:59→17:22)
[2021-02-26] MEDS: FENTANYL CITRATE/PF 2,500 MCG in SODIUM CHLORIDE 0.9% 200 ML IV PRN (01:06)
[2021-02-26 05:34] LABS: HEMATOCRIT. 26.6 % (42.0-52.0); HEMOGLOBIN. 8.4 g/dL (14.0-18.0); MEAN CORPUSCULAR HEMOGLOBIN 26.2 pg (28.0-32.0); MEAN CORPUSCULAR VOLUME 83.6 fL (80.0-94.0); MEAN PLATELET VOLUME 10.2 fl (7.4-10.4); PLATELET 142 x1000/uL (130-400); RED BLOOD CELL COUNT 3.19 mill/uL (4.7-6.1); RED CELL DISTRIBUTION WIDTH 15.4 % (11.6-14.6)
[2021-02-26] MEDS: METHYLPREDNISOLONE SOD SUCC 40 MG/ML VIAL IV SCH ×2 (05:45→17:20)
[2021-02-26 08:17] LABS: BG BASE EXCESS -3.6 mmol/L (-2.0-2.0); BG CARBOXYHEMOGLOBIN 0.1 % (0.5-1.5); BG DEOXYHEMOGLOBIN 3.4 % (0.0-5.0); BG HCO3 ACT 22.3 mmol/L (22.0-26.0); BG METHEMOGLOBIN 0.5 % (0.0-1.5); BG OXYGEN SATURATION 96.6 % (92.0-98.5); BG PCO2 44.2 mmHg (35.0-45.0); BG PH 7.321 (7.350-7.450); BG PO2 99.1 mmHg (75.0-100.0); BG SAMPLE SITE RIGHT RADIAL; BG TOTAL HEMOGLOBIN 8.9 g/dL (12.0-18.0); BG VENT MODE VENT- PRVC
[2021-02-26] MEDS: TACROLIMUS 1MG/PACKET NG SCH ×2 (09:14→17:20)
[2021-02-26] MEDS: MIDODRINE HCL 5MG TABLET PO SCH ×3 (09:15→17:20)
[2021-02-26] MEDS: INSULIN GLARGINE UD 100 UNITS/ML SYR SUBCUT SCH ×2 (09:15→22:01)
[2021-02-26] MEDS: HEPARIN 5000 UNITS/ML VIAL SUBCUT SCH ×2 (09:15→21:36)
[2021-02-26 10:31] LABS: ATYPICAL LYMPHOCYTES 1; PLATELET ESTIMATE NORMAL
[2021-02-26] MEDS ORDERED: VANCOMYCIN 750 MG PREMIX 150 ML IV NR (18:00)
[2021-02-26] MEDS: MEROPENEM 500MG in NORMAL SALINE 50ML IV SCH (18:05)
[2021-02-26] MEDS: FAMOTIDINE 20MG/2ML VIAL IV SCH (21:22)
[2021-02-27] VITALS (113 sets, daily range): BP systolic 65–163; BP diastolic 36–87
[2021-02-27] MEDS: INSULIN LISPRO 100 UNITS/ML SUBCUT SCH ×5 (00:10→23:53)
[2021-02-27] MEDS: PHENYLEPHRINE 100 MG in DEXT 5% WATER 240 ML IV PRN ×2 (00:30→18:13)
[2021-02-27] MEDS ORDERED: VANCOMYCIN 750 MG PREMIX 150 ML IV NR ×2 (02:30→22:00)
[2021-02-27] MEDS: BLOOD SUGAR DIAGNOSTIC STRIP TEST SCH ×5 (05:40→23:52)
[2021-02-27] MEDS: METHYLPREDNISOLONE SOD SUCC 40 MG/ML VIAL IV SCH ×2 (05:40→18:13)
[2021-02-27 05:47] LABS: HEMATOCRIT. 28.3 % (42.0-52.0); HEMOGLOBIN. 8.7 g/dL (14.0-18.0); MEAN CORPUSCULAR HEMOGLOBIN 26.3 pg (28.0-32.0); MEAN CORPUSCULAR VOLUME 85.3 fL (80.0-94.0); MEAN PLATELET VOLUME 10.7 fl (7.4-10.4); PLATELET 146 x1000/uL (130-400); RED BLOOD CELL COUNT 3.32 mill/uL (4.7-6.1); RED CELL DISTRIBUTION WIDTH 15.7 % (11.6-14.6)
[2021-02-27 08:28] LABS: NUCLEATED RED BLOOD CELLS 1 /100 WBC; PLATELET ESTIMATE NORMAL
[2021-02-27] MEDS: MIDODRINE HCL 5MG TABLET PO SCH ×3 (09:00→16:46)
[2021-02-27] MEDS: TACROLIMUS 1MG/PACKET NG SCH ×2 (09:03→22:00)
[2021-02-27] MEDS: HEPARIN 5000 UNITS/ML VIAL SUBCUT SCH ×2 (09:04→23:00)
[2021-02-27] MEDS: INSULIN GLARGINE UD 100 UNITS/ML SYR SUBCUT SCH ×2 (09:08→23:00)
[2021-02-27 09:14] LABS: BG CARBOXYHEMOGLOBIN 0.1 % (0.5-1.5); BG DEOXYHEMOGLOBIN 5.5 % (0.0-5.0); BG FRACTION INSPIRED OXYGEN 70; BG HCO3 ACT 22.8 mmol/L (22.0-26.0); BG METHEMOGLOBIN 0.4 % (0.0-1.5); BG OXYGEN SATURATION 94.5 % (92.0-98.5); BG PCO2 50.3 mmHg (35.0-45.0); BG PH 7.274 (7.350-7.450); BG PO2 79.9 mmHg (75.0-100.0); BG SAMPLE SITE RIGHT RADIAL; BG TOTAL HEMOGLOBIN 9.2 g/dL (12.0-18.0); BG VENT MODE VENT - PRVC
[2021-02-27] MEDS: FENTANYL CITRATE/PF 2,500 MCG in SODIUM CHLORIDE 0.9% 200 ML IV PRN ×2 (10:05→18:13)
[2021-02-27] MEDS: MEROPENEM 500MG in NORMAL SALINE 50ML IV SCH (18:13)
[2021-02-27] MEDS: FAMOTIDINE 20MG/2ML VIAL IV SCH (22:00)
[2021-02-28] VITALS (105 sets, daily range): BP systolic 43–188; BP diastolic 27–101
[2021-02-28] MEDS: MIDAZOLAM HCL 100 MG in SODIUM CHLORIDE 0.9% 80 ML IV PRN ×2 (04:26→22:52)
[2021-02-28] MEDS: FENTANYL CITRATE/PF 2,500 MCG in SODIUM CHLORIDE 0.9% 200 ML IV PRN ×3 (04:26→18:49)
[2021-02-28 05:23] LABS: HEMATOCRIT. 27.4 % (42.0-52.0); HEMOGLOBIN. 8.3 g/dL (14.0-18.0); MEAN CORPUSCULAR HEMOGLOBIN 26.4 pg (28.0-32.0); MEAN CORPUSCULAR VOLUME 86.6 fL (80.0-94.0); MEAN PLATELET VOLUME 10.8 fl (7.4-10.4); PLATELET 110 x1000/uL (130-400); RED BLOOD CELL COUNT 3.16 mill/uL (4.7-6.1); RED CELL DISTRIBUTION WIDTH 15.8 % (11.6-14.6)
[2021-02-28] MEDS: METHYLPREDNISOLONE SOD SUCC 40 MG/ML VIAL IV SCH ×2 (05:44→17:59)
[2021-02-28] MEDS: BLOOD SUGAR DIAGNOSTIC STRIP TEST SCH ×4 (05:51→23:03)
[2021-02-28] MEDS: INSULIN LISPRO 100 UNITS/ML SUBCUT SCH ×4 (05:51→23:06)
[2021-02-28 08:06] LABS: NUCLEATED RED BLOOD CELLS 1 /100 WBC; PLATELET ESTIMATE DECREASED
[2021-02-28 08:23] LABS: BG CARBOXYHEMOGLOBIN 0.8 % (0.5-1.5); BG DEOXYHEMOGLOBIN 5.4 % (0.0-5.0); BG HCO3 ACT 23.5 mmol/L (22.0-26.0); BG METHEMOGLOBIN 0.3 % (0.0-1.5); BG OXYGEN SATURATION 94.5 % (92.0-98.5); BG OXYHEMOGLOBIN 93.5 % (94.0-97.0); BG PCO2 55.5 mmHg (35.0-45.0); BG PH 7.244 (7.350-7.450); BG PO2 84.5 mmHg (75.0-100.0); BG SAMPLE SITE LEFT RADIAL; BG TOTAL HEMOGLOBIN 8.9 g/dL (12.0-18.0); BG VENT MODE VENT- PRVC
[2021-02-28] MEDS: TACROLIMUS 1MG/PACKET NG SCH ×2 (08:49→21:24)
[2021-02-28] MEDS: HEPARIN 5000 UNITS/ML VIAL SUBCUT SCH ×2 (08:49→22:48)
[2021-02-28] MEDS: INSULIN GLARGINE UD 100 UNITS/ML SYR SUBCUT SCH ×2 (08:51→23:06)
[2021-02-28] MEDS: MIDODRINE HCL 5MG TABLET PO SCH ×3 (08:52→17:00)
[2021-02-28] MEDS: PHENYLEPHRINE 100 MG in DEXT 5% WATER 240 ML IV PRN ×2 (12:27→18:58)
[2021-02-28] MEDS: NOREPINEPHRINE 32 MG in DEXT 5% WATER 218 ML IV PRN (15:13)
[2021-02-28] MEDS ORDERED: SODIUM BICARBONATE 8.4% 1 MEQ/ML 50ML SYR IV NR (17:30)
[2021-02-28] MEDS: MEROPENEM 500MG in NORMAL SALINE 50ML IV SCH (17:59)
[2021-02-28 18:29] LABS: BG BASE EXCESS -2.3 mmol/L (-2.0-2.0); BG CARBOXYHEMOGLOBIN 1.1 % (0.5-1.5); BG DEOXYHEMOGLOBIN 2.1 % (0.0-5.0); BG METHEMOGLOBIN 0.3 % (0.0-1.5); BG OXYGEN SATURATION 97.9 % (92.0-98.5); BG OXYHEMOGLOBIN 96.5 % (94.0-97.0); BG PCO2 48.4 mmHg (35.0-45.0); BG PH 7.313 (7.350-7.450); BG PO2 116.3 mmHg (75.0-100.0); BG SAMPLE SITE RIGHT RADIAL; BG VENT MODE VENT- PRVC
[2021-02-28] MEDS: FAMOTIDINE 20MG/2ML VIAL IV SCH ×2 (20:22→21:24)
[2021-03-01] VITALS (96 sets, daily range): BP systolic 72–167; BP diastolic 35–92
[2021-03-01] MEDS: PHENYLEPHRINE 100 MG in DEXT 5% WATER 240 ML IV PRN (00:42)
[2021-03-01] MEDS: FENTANYL CITRATE/PF 2,500 MCG in SODIUM CHLORIDE 0.9% 200 ML IV PRN ×3 (01:43→17:42)
[2021-03-01] MEDS: BLOOD SUGAR DIAGNOSTIC STRIP TEST SCH ×4 (05:09→23:44)
[2021-03-01] MEDS: METHYLPREDNISOLONE SOD SUCC 40 MG/ML VIAL IV SCH ×2 (05:12→17:32)
[2021-03-01] MEDS: INSULIN LISPRO 100 UNITS/ML SUBCUT SCH ×4 (05:13→23:00)
[2021-03-01 05:36] LABS: HEMATOCRIT. 25.5 % (42.0-52.0); HEMOGLOBIN. 8.1 g/dL (14.0-18.0); MEAN CORPUSCULAR HEMOGLOBIN 26.8 pg (28.0-32.0); MEAN CORPUSCULAR VOLUME 85.1 fL (80.0-94.0); MEAN PLATELET VOLUME 11.5 fl (7.4-10.4); PLATELET 85 x1000/uL (130-400); RED CELL DISTRIBUTION WIDTH 15.7 % (11.6-14.6)
[2021-03-01 07:49] LABS: NUCLEATED RED BLOOD CELLS 1 /100 WBC
[2021-03-01 07:50] LABS: PLATELET ESTIMATE DECREASED
[2021-03-01] MEDS: MIDODRINE HCL 5MG TABLET PO SCH ×3 (08:17→17:32)
[2021-03-01] MEDS: TACROLIMUS 1MG/PACKET NG SCH ×2 (08:17→20:53)
[2021-03-01 09:06] LABS: BG CARBOXYHEMOGLOBIN 0.3 % (0.5-1.5); BG DEOXYHEMOGLOBIN 0.9 % (0.0-5.0); BG FRACTION INSPIRED OXYGEN 100; BG METHEMOGLOBIN 0.5 % (0.0-1.5); BG OXYGEN SATURATION 99.1 % (92.0-98.5); BG OXYHEMOGLOBIN 98.3 % (94.0-97.0); BG PH 7.385 (7.350-7.450); BG PO2 193.3 mmHg (75.0-100.0); BG SAMPLE SITE LEFT RADIAL; BG TOTAL RESPIRATORY RATE 40 b/min; BG VENT MODE VENT- PRVC
[2021-03-01] MEDS: HEPARIN 5000 UNITS/ML VIAL SUBCUT SCH (09:44)
[2021-03-01] MEDS: INSULIN GLARGINE UD 100 UNITS/ML SYR SUBCUT SCH ×2 (09:44→23:00)
[2021-03-01] MEDS: MIDAZOLAM HCL 100 MG in SODIUM CHLORIDE 0.9% 80 ML IV PRN (13:41)
[2021-03-01] MEDS: MEROPENEM 500MG in NORMAL SALINE 50ML IV SCH (18:02)
[2021-03-01] MEDS: FAMOTIDINE 20MG/2ML VIAL IV SCH (20:53)
[2021-03-02] VITALS (100 sets, daily range): BP systolic 65–175; BP diastolic 47–95
[2021-03-02] MEDS: FENTANYL CITRATE/PF 2,500 MCG in SODIUM CHLORIDE 0.9% 200 ML IV PRN ×4 (00:53→23:27)
[2021-03-02] MEDS: PHENYLEPHRINE 100 MG in DEXT 5% WATER 240 ML IV PRN (00:53)
[2021-03-02] MEDS: MIDAZOLAM HCL 100 MG in SODIUM CHLORIDE 0.9% 80 ML IV PRN ×2 (04:46→18:11)
[2021-03-02] MEDS: BLOOD SUGAR DIAGNOSTIC STRIP TEST SCH ×3 (05:17→17:26)
[2021-03-02] MEDS: METHYLPREDNISOLONE SOD SUCC 40 MG/ML VIAL IV SCH ×2 (05:20→17:03)
[2021-03-02] MEDS: INSULIN LISPRO 100 UNITS/ML SUBCUT SCH ×3 (05:21→17:04)
[2021-03-02 05:53] LABS: HEMATOCRIT. 22.3 % (42.0-52.0); HEMOGLOBIN. 7.1 g/dL (14.0-18.0); MEAN CORPUSCULAR VOLUME 85.2 fL (80.0-94.0); RED BLOOD CELL COUNT 2.62 mill/uL (4.7-6.1); RED CELL DISTRIBUTION WIDTH 15.7 % (11.6-14.6)
[2021-03-02] MEDS: MIDODRINE HCL 5MG TABLET PO SCH ×3 (08:09→17:03)
[2021-03-02] MEDS: TACROLIMUS 1MG/PACKET NG SCH ×2 (08:09→20:39)
[2021-03-02 09:20] LABS: BG CARBOXYHEMOGLOBIN 0.9 % (0.5-1.5); BG DEOXYHEMOGLOBIN 12.4 % (0.0-5.0); BG FRACTION INSPIRED OXYGEN 80; BG HCO3 ACT 22.3 mmol/L (22.0-26.0); BG METHEMOGLOBIN 0.5 % (0.0-1.5); BG OXYGEN SATURATION 87.4 % (92.0-98.5); BG OXYHEMOGLOBIN 86.2 % (94.0-97.0); BG PCO2 46.7 mmHg (35.0-45.0); BG PH 7.297 (7.350-7.450); BG PO2 61.4 mmHg (75.0-100.0); BG SAMPLE SITE LEFT RADIAL; BG TOTAL HEMOGLOBIN 9.2 g/dL (12.0-18.0); BG VENT MODE PRVC-AC
[2021-03-02] MEDS: INSULIN GLARGINE UD 100 UNITS/ML SYR SUBCUT SCH ×2 (09:22→21:10)
[2021-03-02 15:43] LABS: PLATELET ESTIMATE SLIGHTLY DECREASED
[2021-03-02 15:45] LABS: MEAN PLATELET VOLUME 11.9 fl (7.4-10.4); PLATELET 71 x1000/uL (130-400)
[2021-03-02] MEDS ORDERED: VANCOMYCIN 500 MG PREMIX 100 ML IV NR (20:00)
[2021-03-02] MEDS: FAMOTIDINE 20MG/2ML VIAL IV SCH (20:40)
[2021-03-03] VITALS (102 sets, daily range): BP systolic 79–139; BP diastolic 28–84
[2021-03-03] MEDS: BLOOD SUGAR DIAGNOSTIC STRIP TEST SCH ×5 (00:49→23:25)
[2021-03-03] MEDS: INSULIN LISPRO 100 UNITS/ML SUBCUT SCH ×5 (00:52→23:25)
[2021-03-03] MEDS: PHENYLEPHRINE 100 MG in DEXT 5% WATER 240 ML IV PRN (01:31)
[2021-03-03] MEDS: MIDAZOLAM HCL 100 MG in SODIUM CHLORIDE 0.9% 80 ML IV PRN ×3 (04:43→20:48)
[2021-03-03] MEDS: METHYLPREDNISOLONE SOD SUCC 40 MG/ML VIAL IV SCH ×2 (05:43→17:45)
[2021-03-03 05:47] LABS: HEMATOCRIT. 21.2 % (42.0-52.0); MEAN CORPUSCULAR HEMOGLOBIN 27.1 pg (28.0-32.0); MEAN CORPUSCULAR VOLUME 86.5 fL (80.0-94.0); RED BLOOD CELL COUNT 2.46 mill/uL (4.7-6.1); RED CELL DISTRIBUTION WIDTH 16.1 % (11.6-14.6)
[2021-03-03 05:49] LABS: HEMOGLOBIN. 6.6 g/dL (14.0-18.0)
[2021-03-03 06:01] LABS: PHOSPHORUS 6.6 mg/dL (2.5-4.9)
[2021-03-03] MEDS: FENTANYL CITRATE/PF 2,500 MCG in SODIUM CHLORIDE 0.9% 200 ML IV PRN ×3 (06:10→20:49)
[2021-03-03 09:40] LABS: BG BASE EXCESS -0.9 mmol/L (-2.0-2.0); BG CARBOXYHEMOGLOBIN 0.5 % (0.5-1.5); BG DEOXYHEMOGLOBIN 1.3 % (0.0-5.0); BG FRACTION INSPIRED OXYGEN 90; BG HCO3 ACT 25.4 mmol/L (22.0-26.0); BG METHEMOGLOBIN 0.3 % (0.0-1.5); BG OXYGEN SATURATION 98.7 % (92.0-98.5); BG OXYHEMOGLOBIN 97.9 % (94.0-97.0); BG PCO2 50.7 mmHg (35.0-45.0); BG PH 7.317 (7.350-7.450); BG PO2 138.9 mmHg (75.0-100.0); BG SAMPLE SITE LEFT RADIAL; BG TOTAL HEMOGLOBIN 7.9 g/dL (12.0-18.0); BG VENT MODE VENT - PRVC
[2021-03-03] MEDS: MIDODRINE HCL 5MG TABLET PO SCH ×3 (10:34→17:45)
[2021-03-03] MEDS: INSULIN GLARGINE UD 100 UNITS/ML SYR SUBCUT SCH ×2 (10:35→22:00)
[2021-03-03] MEDS: TACROLIMUS 1MG/PACKET NG SCH ×2 (10:35→20:31)
[2021-03-03 11:41] LABS: NUCLEATED RED BLOOD CELLS 1 /100 WBC; PLATELET ESTIMATE DECREASED
[2021-03-03] MEDS: FAMOTIDINE 20MG/2ML VIAL IV SCH (21:48)
[2021-03-04] VITALS (112 sets, daily range): BP systolic 60–157; BP diastolic 34–88
[2021-03-04] MEDS: BLOOD SUGAR DIAGNOSTIC STRIP TEST SCH ×4 (05:03→23:35)
[2021-03-04] MEDS: INSULIN LISPRO 100 UNITS/ML SUBCUT SCH ×4 (05:03→23:38)
[2021-03-04] MEDS: METHYLPREDNISOLONE SOD SUCC 40 MG/ML VIAL IV SCH ×2 (05:03→17:54)
[2021-03-04] MEDS: MIDAZOLAM HCL 100 MG in SODIUM CHLORIDE 0.9% 80 ML IV PRN ×3 (05:04→19:41)
[2021-03-04] MEDS: FENTANYL CITRATE/PF 2,500 MCG in SODIUM CHLORIDE 0.9% 200 ML IV PRN ×3 (05:10→21:13)
[2021-03-04 05:45] LABS: HEMATOCRIT. 24.7 % (42.0-52.0); HEMOGLOBIN. 7.8 g/dL (14.0-18.0); MEAN CORPUSCULAR HEMOGLOBIN 27.1 pg (28.0-32.0); MEAN CORPUSCULAR VOLUME 85.9 fL (80.0-94.0); MEAN PLATELET VOLUME 10.9 fl (7.4-10.4); PLATELET 59 x1000/uL (130-400); RED BLOOD CELL COUNT 2.88 mill/uL (4.7-6.1); RED CELL DISTRIBUTION WIDTH 16.7 % (11.6-14.6)
[2021-03-04] MEDS ORDERED: SODIUM POLYSTYRENE SULFONATE 15 G/60 ML BOT PO SCH (08:15)
[2021-03-04] MEDS ORDERED: INSULIN REGULAR (HUMULIN R) 300UNITS/3ML VIAL IV STA (08:15)
[2021-03-04] MEDS ORDERED: CALCIUM GLUCONATE 100MG/ML 10ML VIAL IV STA (08:15)
[2021-03-04] MEDS ORDERED: DEXTROSE 50% WATER 50ML SYRINGE IV STA (08:15)
[2021-03-04] MEDS ORDERED: CALCIUM GLUCONATE 1000 MG in DEXTROSE 5% WATER 100 ML IV ONE (08:30)
[2021-03-04] MEDS: TACROLIMUS 1MG/PACKET NG SCH ×3 (09:00→20:22)
[2021-03-04] MEDS: MIDODRINE HCL 5MG TABLET PO SCH ×4 (09:00→17:00)
[2021-03-04] MEDS: INSULIN GLARGINE UD 100 UNITS/ML SYR SUBCUT SCH ×2 (09:23→21:40)
[2021-03-04 09:24] LABS: BG CARBOXYHEMOGLOBIN 1.4 % (0.5-1.5); BG DEOXYHEMOGLOBIN 3.8 % (0.0-5.0); BG FRACTION INSPIRED OXYGEN 100; BG HCO3 ACT 20.7 mmol/L (22.0-26.0); BG METHEMOGLOBIN 0.3 % (0.0-1.5); BG OXYGEN SATURATION 96.1 % (92.0-98.5); BG OXYHEMOGLOBIN 94.5 % (94.0-97.0); BG PCO2 46.9 mmHg (35.0-45.0); BG PH 7.262 (7.350-7.450); BG PO2 94.6 mmHg (75.0-100.0); BG SAMPLE SITE LEFT RADIAL; BG TOTAL HEMOGLOBIN 8.2 g/dL (12.0-18.0); BG VENT MODE VENT - PRVC
[2021-03-04] MEDS ORDERED: CALCIUM GLUCONATE 1GM PREMIX 50 ML IV NR (10:00)
[2021-03-04 10:18] LABS: PLATELET ESTIMATE DECREASED
[2021-03-04] MEDS: FAMOTIDINE 20MG/2ML VIAL IV SCH (20:22)
[2021-03-05] VITALS (105 sets, daily range): BP systolic 68–135; BP diastolic 37–72
[2021-03-05] MEDS: MIDAZOLAM HCL 100 MG in SODIUM CHLORIDE 0.9% 80 ML IV PRN ×3 (04:10→18:59)
[2021-03-05] MEDS: FENTANYL CITRATE/PF 2,500 MCG in SODIUM CHLORIDE 0.9% 200 ML IV PRN ×2 (05:11→20:24)
[2021-03-05] MEDS: BLOOD SUGAR DIAGNOSTIC STRIP TEST SCH ×3 (05:59→17:10)
[2021-03-05] MEDS: INSULIN LISPRO 100 UNITS/ML SUBCUT SCH ×3 (06:00→17:19)
[2021-03-05] MEDS: METHYLPREDNISOLONE SOD SUCC 40 MG/ML VIAL IV SCH ×2 (06:05→17:18)
[2021-03-05] MEDS: MIDODRINE HCL 5MG TABLET PO SCH ×3 (08:58→17:18)
[2021-03-05] MEDS: TACROLIMUS 1MG/PACKET NG SCH ×2 (08:58→20:53)
[2021-03-05] MEDS: INSULIN GLARGINE UD 100 UNITS/ML SYR SUBCUT SCH ×2 (09:01→22:00)
[2021-03-05 09:38] LABS: BG BASE EXCESS -2.7 mmol/L (-2.0-2.0); BG CARBOXYHEMOGLOBIN 1.7 % (0.5-1.5); BG DEOXYHEMOGLOBIN 1.3 % (0.0-5.0); BG FRACTION INSPIRED OXYGEN 100; BG HCO3 ACT 24.2 mmol/L (22.0-26.0); BG METHEMOGLOBIN 0.4 % (0.0-1.5); BG OXYGEN SATURATION 98.7 % (92.0-98.5); BG OXYHEMOGLOBIN 96.6 % (94.0-97.0); BG PCO2 53.2 mmHg (35.0-45.0); BG PH 7.276 (7.350-7.450); BG PO2 138.3 mmHg (75.0-100.0); BG SAMPLE SITE LEFT RADIAL; BG TOTAL HEMOGLOBIN 8.2 g/dL (12.0-18.0); BG VENT MODE VENT - PRVC
[2021-03-05] MEDS: PROPOFOL 10MG/ML 100ML 100 ML IV PRN ×2 (19:01→22:13)
[2021-03-05] MEDS: PHENYLEPHRINE 100 MG in DEXT 5% WATER 240 ML IV PRN (20:25)
[2021-03-05] MEDS: FAMOTIDINE 20MG/2ML VIAL IV SCH (20:53)
[2021-03-06] VITALS (99 sets, daily range): BP systolic 62–171; BP diastolic 29–118
[2021-03-06] MEDS: BLOOD SUGAR DIAGNOSTIC STRIP TEST SCH ×5 (00:20→23:19)
[2021-03-06] MEDS: MIDAZOLAM HCL 100 MG in SODIUM CHLORIDE 0.9% 80 ML IV PRN ×2 (00:22→08:41)
[2021-03-06] MEDS: PROPOFOL 10MG/ML 100ML 100 ML IV PRN ×3 (01:54→16:38)
[2021-03-06] MEDS: PHENYLEPHRINE 100 MG in DEXT 5% WATER 240 ML IV PRN ×3 (03:10→17:07)
[2021-03-06] MEDS: NOREPINEPHRINE 32 MG in DEXT 5% WATER 218 ML IV PRN (03:22)
[2021-03-06] MEDS: FENTANYL CITRATE/PF 2,500 MCG in SODIUM CHLORIDE 0.9% 200 ML IV PRN ×2 (03:34→15:23)
[2021-03-06] MEDS: METHYLPREDNISOLONE SOD SUCC 40 MG/ML VIAL IV SCH ×2 (05:17→18:00)
[2021-03-06 05:19] LABS: HEMATOCRIT. 26.5 % (42.0-52.0); HEMOGLOBIN. 8.4 g/dL (14.0-18.0); MEAN CORPUSCULAR HEMOGLOBIN 27.4 pg (28.0-32.0); MEAN CORPUSCULAR VOLUME 86.9 fL (80.0-94.0); RED BLOOD CELL COUNT 3.05 mill/uL (4.7-6.1); RED CELL DISTRIBUTION WIDTH 17.7 % (11.6-14.6)
[2021-03-06] MEDS: INSULIN LISPRO 100 UNITS/ML SUBCUT SCH ×5 (05:19→23:22)
[2021-03-06] MEDS ORDERED: BISACODYL 10MG SUPP PR PRN (09:30)
[2021-03-06] MEDS: TACROLIMUS 1MG/PACKET NG SCH ×2 (09:31→21:57)
[2021-03-06] MEDS: MIDODRINE HCL 5MG TABLET PO SCH ×3 (09:31→18:00)
[2021-03-06 09:44] LABS: BG BASE EXCESS -7.1 mmol/L (-2.0-2.0); BG CARBOXYHEMOGLOBIN 0.9 % (0.5-1.5); BG DEOXYHEMOGLOBIN 5.5 % (0.0-5.0); BG HCO3 ACT 22.9 mmol/L (22.0-26.0); BG METHEMOGLOBIN 0.5 % (0.0-1.5); BG OXYGEN SATURATION 94.4 % (92.0-98.5); BG OXYHEMOGLOBIN 93.1 % (94.0-97.0); BG PCO2 74.3 mmHg (35.0-45.0); BG PH 7.106 (7.350-7.450); BG PO2 88.1 mmHg (75.0-100.0); BG SAMPLE SITE LEFT RADIAL; BG TOTAL HEMOGLOBIN 9.4 g/dL (12.0-18.0); BG VENT MODE VENT- PRVC
[2021-03-06] MEDS: INSULIN GLARGINE UD 100 UNITS/ML SYR SUBCUT SCH ×2 (10:12→23:23)
[2021-03-06 10:50] LABS: PLATELET ESTIMATE DECREASED
[2021-03-06 10:53] LABS: PLATELET 73 x1000/uL (130-400)
[2021-03-06 12:56] LABS: BG BASE EXCESS -8.8 mmol/L (-2.0-2.0); BG DEOXYHEMOGLOBIN 11.1 % (0.0-5.0); BG FRACTION INSPIRED OXYGEN 100; BG HCO3 ACT 20.5 mmol/L (22.0-26.0); BG METHEMOGLOBIN 0.6 % (0.0-1.5); BG OXYGEN SATURATION 88.7 % (92.0-98.5); BG OXYHEMOGLOBIN 87.3 % (94.0-97.0); BG PCO2 65.4 mmHg (35.0-45.0); BG PH 7.115 (7.350-7.450); BG PO2 66.8 mmHg (75.0-100.0); BG SAMPLE SITE RIGHT RADIAL; BG TOTAL HEMOGLOBIN 8.8 g/dL (12.0-18.0); BG TOTAL RESPIRATORY RATE 40 b/min; BG VENT MODE VENT- PRVC
[2021-03-06] MEDS ORDERED: PROPOFOL 10MG/ML 100ML 100 ML IV PRN (13:30)
[2021-03-06] MEDS: MEROPENEM 1,000 MG in SODIUM CHLORIDE 0.9% 100 ML IV SCH (21:57)
[2021-03-06] MEDS: FAMOTIDINE 20MG/2ML VIAL IV SCH (21:57)
[2021-03-07] VITALS (88 sets, daily range): BP systolic 53–149; BP diastolic 33–92
[2021-03-07] MEDS ORDERED: CALCIUM CHLORIDE 1GM/10ML SYR IV SCH (01:15)
[2021-03-07] MEDS ORDERED: DEXTROSE 50% WATER 50ML SYRINGE IV SCH (01:15)
[2021-03-07] MEDS ORDERED: SODIUM BICARBONATE 8.4% 1 MEQ/ML 50ML SYR IV SCH (01:15)
[2021-03-07] MEDS ORDERED: INSULIN REGULAR (HUMULIN R) 300UNITS/3ML VIAL IV SCH (01:15)
[2021-03-07] MEDS: PHENYLEPHRINE 100 MG in DEXT 5% WATER 240 ML IV PRN ×4 (01:25→18:10)
[2021-03-07] MEDS: NOREPINEPHRINE 32 MG in DEXT 5% WATER 218 ML IV PRN ×6 (02:26→21:35)
[2021-03-07 05:08] LABS: HEMATOCRIT. 26.1 % (42.0-52.0); HEMOGLOBIN. 7.9 g/dL (14.0-18.0); MEAN CORPUSCULAR HEMOGLOBIN 27.1 pg (28.0-32.0); MEAN CORPUSCULAR VOLUME 89.8 fL (80.0-94.0); RED BLOOD CELL COUNT 2.91 mill/uL (4.7-6.1); RED CELL DISTRIBUTION WIDTH 18.5 % (11.6-14.6)
[2021-03-07] MEDS: BLOOD SUGAR DIAGNOSTIC STRIP TEST SCH ×3 (05:30→17:59)
[2021-03-07] MEDS: METHYLPREDNISOLONE SOD SUCC 40 MG/ML VIAL IV SCH ×2 (05:39→18:03)
[2021-03-07] MEDS: INSULIN LISPRO 100 UNITS/ML SUBCUT SCH ×3 (05:40→18:03)
[2021-03-07] MEDS ORDERED: SODIUM BICARBONATE 8.4% 1 MEQ/ML 50ML SYR IV STA (06:15)
[2021-03-07] MEDS ORDERED: DEXTROSE 50% WATER 50ML SYRINGE IV STA (06:15)
[2021-03-07] MEDS ORDERED: INSULIN REGULAR (HUMULIN R) 300UNITS/3ML VIAL IV STA (06:15)
[2021-03-07] MEDS ORDERED: SODIUM POLYSTYRENE SULFONATE 15 G/60 ML BOT PO STA (06:15)
[2021-03-07] MEDS ORDERED: EPINEPHRINE 0.1MG/ML (1:10,000) 10ML SYR ONE ×2 (08:06→08:47)
[2021-03-07] MEDS ORDERED: CALCIUM CHLORIDE 1GM/10ML SYR IV ONE ×2 (08:06→08:47)
[2021-03-07] MEDS ORDERED: SODIUM BICARBONATE 8.4% 1 MEQ/ML 50ML SYR IV ONE ×2 (08:06→08:47)
[2021-03-07] MEDS: EPINEPHRINE 10 MG in SODIUM CHLORIDE 0.9% 240 ML IV PRN ×5 (08:07→18:10)
[2021-03-07] MEDS: TACROLIMUS 1MG/PACKET NG SCH ×2 (08:19→20:37)
[2021-03-07] MEDS: MIDODRINE HCL 5MG TABLET PO SCH ×3 (08:19→17:00)
[2021-03-07] MEDS ORDERED: DEXTROSE 50% WATER 50ML SYRINGE IV ONE (08:47)
[2021-03-07] MEDS: INSULIN GLARGINE UD 100 UNITS/ML SYR SUBCUT SCH (10:00)
[2021-03-07 10:42] LABS: PLATELET ESTIMATE DECREASED
[2021-03-07 10:47] LABS: PLATELET 64 x1000/uL (130-400)
[2021-03-07 11:09] LABS: BG BASE EXCESS -9.6 mmol/L (-2.0-2.0); BG CARBOXYHEMOGLOBIN 2.3 % (0.5-1.5); BG DEOXYHEMOGLOBIN 23.1 % (0.0-5.0); BG FRACTION INSPIRED OXYGEN 100; BG HCO3 ACT 19.2 mmol/L (22.0-26.0); BG METHEMOGLOBIN 0.1 % (0.0-1.5); BG OXYGEN SATURATION 76.3 % (92.0-98.5); BG OXYHEMOGLOBIN 74.5 % (94.0-97.0); BG PCO2 61.8 mmHg (35.0-45.0); BG PH 7.111 (7.350-7.450); BG PO2 55.4 mmHg (75.0-100.0); BG SAMPLE SITE LEFT RADIAL; BG TOTAL HEMOGLOBIN 6.9 g/dL (12.0-18.0); BG VENT MODE VENT - PRVC
[2021-03-07] MEDS: MEROPENEM 1,000 MG in SODIUM CHLORIDE 0.9% 100 ML IV SCH (20:07)
[2021-03-07] MEDS: FAMOTIDINE 20MG/2ML VIAL IV SCH (20:14)
[2021-03-07] MEDS: VASOPRESSIN 20 UNIT in SODIUM CHLORIDE 0.9% 99 ML IV PRN (20:38)
== END 2021-03-07 22:54 | DRG 870 ==
LOC: ER 04:48 → MICUSO 08:30 → 7WST 02-17 14:50 → MICUSO 02-18 18:55
PROVIDERS: ADMIT Internal Medicine; ATTEND Internal Medicine
PROC: 5A09457 Assistance with Respiratory Ventilation, 24-96 Consecutive Hours, Continuous Positive Airway Pressure (ICD-10-PCS; principal; 2021-02-14)
PROC: 5A0935A Assistance with Respiratory Ventilation, Less than 24 Consecutive Hours, High Flow/Velocity Cannula (ICD-10-PCS; 2021-02-15)
PROC: 5A09357 Assistance with Respiratory Ventilation, Less than 24 Consecutive Hours, Continuous Positive Airway Pressure (ICD-10-PCS; 2021-02-17)
PROC: 5A1955Z Respiratory Ventilation, Greater than 96 Consecutive Hours (ICD-10-PCS; 2021-02-18)
PROC: 05HY33Z Insertion of Infusion Device into Upper Vein, Percutaneous Approach (ICD-10-PCS; 2021-02-18)
PROC: B54MZZA Ultrasonography of Right Upper Extremity Veins, Guidance (ICD-10-PCS; 2021-02-18)
PROC: 0BH17EZ Insertion of Endotracheal Airway into Trachea, Via Natural or Artificial Opening (ICD-10-PCS; 2021-02-18)
PROC: 5A12012 Performance of Cardiac Output, Single, Manual (ICD-10-PCS; 2021-02-22)
PROC: 06HY33Z Insertion of Infusion Device into Lower Vein, Percutaneous Approach (ICD-10-PCS; 2021-02-22)
PROC: 5A1D70Z Performance of Urinary Filtration, Intermittent, Less than 6 Hours Per Day (ICD-10-PCS; 2021-02-22)
PROC: 5A1D70Z Performance of Urinary Filtration, Intermittent, Less than 6 Hours Per Day (ICD-10-PCS; 2021-02-25)
PROC: 5A1D70Z Performance of Urinary Filtration, Intermittent, Less than 6 Hours Per Day (ICD-10-PCS; 2021-02-27)
PROC: 5A1D70Z Performance of Urinary Filtration, Intermittent, Less than 6 Hours Per Day (ICD-10-PCS; 2021-02-28)
PROC: 5A1D70Z Performance of Urinary Filtration, Intermittent, Less than 6 Hours Per Day (ICD-10-PCS; 2021-03-02)
PROC: 30233N1 Transfusion of Nonautologous Red Blood Cells into Peripheral Vein, Percutaneous Approach (ICD-10-PCS; 2021-03-03)
PROC: 5A1D70Z Performance of Urinary Filtration, Intermittent, Less than 6 Hours Per Day (ICD-10-PCS; 2021-03-04)
PROC: 5A12012 Performance of Cardiac Output, Single, Manual (ICD-10-PCS; 2021-03-07)
DX: A41.89 Other specified sepsis (principal); U07.1 COVID-19; J12.82 Pneumonia due to coronavirus disease 2019; J96.01 Acute respiratory failure with hypoxia; N17.0 Acute kidney failure with tubular necrosis; N18.6 End stage renal disease; J96.02 Acute respiratory failure with hypercapnia; G93.41 Metabolic encephalopathy; R65.21 Severe sepsis with septic shock; D84.9 Immunodeficiency, unspecified; E87.1 Hypo-osmolality and hyponatremia; I47.1 Supraventricular tachycardia; I12.0 Hypertensive chronic kidney disease with stage 5 chronic kidney disease or end stage renal disease; T86.19 Other complication of kidney transplant; E87.4 Mixed disorder of acid-base balance; D68.69 Other thrombophilia; Z68.42 Body mass index [BMI] 45.0-49.9, adult; E87.2 Acidosis; I47.2 Ventricular tachycardia; I46.9 Cardiac arrest, cause unspecified; Z66 Do not resuscitate; E11.65 Type 2 diabetes mellitus with hyperglycemia; I49.3 Ventricular premature depolarization; D64.9 Anemia, unspecified; E87.5 Hyperkalemia; Y83.0 Surgical operation with transplant of whole organ as the cause of abnormal reaction of the patient, or of later complication, without mention of misadventure at the time of the procedure; I16.0 Hypertensive urgency; E11.22 Type 2 diabetes mellitus with diabetic chronic kidney disease; E66.01 Morbid (severe) obesity due to excess calories; S30.0XXA Contusion of lower back and pelvis, initial encounter; S00.83XA Contusion of other part of head, initial encounter; X58.XXXA Exposure to other specified factors, initial encounter; I48.0 Paroxysmal atrial fibrillation; D69.6 Thrombocytopenia, unspecified; Z79.01 Long term (current) use of anticoagulants; Z98.1 Arthrodesis status; Z79.899 Other long term (current) drug therapy; Z79.82 Long term (current) use of aspirin; Y92.89 Other specified places as the place of occurrence of the external cause; Z90.5 Acquired absence of kidney; Z79.4 Long term (current) use of insulin; Y93.89 Activity, other specified; Y99.8 Other external cause status; Z78.1 Physical restraint status; Z99.2 Dependence on renal dialysis
CPT/HCPCS: 31500; 36415; 36556; 36600; 71045; 71275; 76770; 76937; 80048; 80053; 80061; 80197; 80202; 81003; 82375; 82728; 82805; 82962; 83036; 83605; 83615; 83735; 83880; 84100; 84132; 84145; 84443; 84478; 84484; 85025; 86141; 86480; 86705; 86709; 86803; 86850; 86900; 86920; 87070; 87106; 87340; 87426; 87804; 93005; 93970; 94002; 94003; 94640; 94660; 99285; A6261; C1725; C1752; C1893; J0282; J0360; J0456; J0461; J0610; J0692; J0696; J1100; J1170; J1644; J1720; J1815; J1940; J2060; J2185; J2250; J2370; J2405; J2543; J2704; J2920; J3010; J3370; J3490; J7030; J7050; J7060; J7507; J7517; P9016; Q9967; U0003; U0005